=== PATIENT | male | born 1975 | race Caucasian/White ===

== ENCOUNTER 2017-02-11 20:49 | Emergency (ER) | payer BC, OTHER ==
[2017-02-11] MEDS ORDERED: Ondansetron 4 MG Tab.DIS PO ONE (21:20)
[2017-02-11] MEDS ORDERED: Morphine 2 MG/ML Syringe IM ONE (21:20)
[2017-02-11] MEDS ORDERED: Diphtheria,Pertussis(Acell),Tetanus Vaccine 0.5 ML Syringe IM ONE (21:25)
--- NOTE | 2017-02-11 21:26 | EDM.PDOC ---
ED HPI GENERAL MEDICAL PROBLEM - General Chief Complaint: Upper Extremity Injury/Pain Stated Complaint: PT HURT RT THUMB Time Seen by Provider: 02/11/17 21:21 Source of Information: Reports: Patient, Family History Limitations: Reports: No Limitations - History of Present Illness INITIAL COMMENTS - FREE TEXT/NARRATIVE: HISTORY AND PHYSICAL: 41-year-old male presenting with frostbite to his right thumb History of Present Illness: []Tip of his right thumb is cold ecchymosis present. he had his gloves on at work and didn't realize there was a hole in his gloves Does not recall his last tetanus injection Review of Systems: As per history of present illness and below otherwise all systems reviewed and negative. Past medical history: As per history of present illness and as reviewed below otherwise noncontributory. Surgical history: As per history of present illness and as reviewed below otherwise noncontributory. Social history: No reported history of drug or alcohol abuse. Family history: As per history of present illness and as reviewed below otherwise noncontributory. Physical exam: Alert and oriented male answering questions appropriately. He is speaking in full sentences without any shortness of breath HEENT: Atraumatic, normocehpalic, pupils reactive, negative for conjunctival pallor or scleral icterus, mucous membranes moist, throat clear, neck supple, nontender, trachea midline. Lungs: Clear to auscultation, breath sounds equal bilaterally, chest non tender. Heart: S1S2, regular, negative for clicks, rubs, or JVD. Abdomen: Soft, nondistended, nontender. Negative for masses or hepatossplenmegaly. Negative for costovertebral tenderness. Pelvis: Stable nontender. Genitourinary: Deferred. Rectal: Deferred Extremities: Atraumatic, negative for cords or calf pain. Neurovascular unremarkable. Neuro: Awake, alert, oriented. Cranial nerves II through XII unremarkable. Cerebellum unremarkable. Motor and sensory unremarkable throughout. Exam nonfocal. Diagnostics: [] Therapeutics: [] Impression: [] Plan: [] Definitive disposition and diagnosis as appropriate pending reevaluation and review of above. Onset: Today, Sudden Duration: Hour(s):, Getting Worse Location: Reports: Upper Extremity, Right Right 1-Thumb Pain Score (Numeric/FACES): 8 - Related Data Allergies Allergy/AdvReac Type Severity Reaction Status Date / Time No Known Allergies Allergy Verified 02/11/17 21:10 Home Meds: Home Meds . [No Known Home Meds] 02/11/17 [History] Review of Systems - Review of Systems Review Of Systems: ROS reveals no pertinent complaints other than HPI. ED EXAM, GENERAL - Physical Exam Exam: See Below (See dictation) Course - Vital Signs Last Recorded V/S: Last Vital Signs Temp 37.3 C 02/11/17 21:05 Pulse 99 02/11/17 21:05 Resp 18 02/11/17 21:05 BP 134/84 02/11/17 21:05 Pulse Ox 96 02/11/17 21:05 - Orders/Labs/Meds Orders: Active Orders 24 hr Category Date Time Status Vaccines to be Administered [RC] PER UNIT ROUTINE Care 02/11/17 21:25 Ordered Meds: Medications Discontinued Medications Generic Name Dose Route Start Last Admin Trade Name Freq PRN Reason Stop Dose Admin Bacitracin 1 dose 02/11/17 21:32 Bacitracin Oint 1 Gm TOP 02/11/17 21:33 ONETIME ONE Diphtheria/Tetanus/Acell Pertussis 0.5 ml 02/11/17 21:25 Adacel IM 02/11/17 21:26 .ONCE ONE Morphine Sulfate 2 mg 02/11/17 21:20 Morphine IM 02/11/17 21:21 ONETIME ONE Ondansetron HCl 4 mg 02/11/17 21:20 Zofran Odt PO 02/11/17 21:21 ONETIME ONE Departure - Departure Time of Disposition: 21:33 Disposition: Home, Self-Care 01 Condition: Good Clinical Impression: Frostbite of right hand Qualifiers: Encounter type: initial encounter Qualified Code(s): T33.521A - Superficial frostbite of right hand, initial encounter; X31.XXXA - Exposure to excessive natural cold, initial encounter; X31.XXXA - Exposure to excessive natural cold, initial encounter - Discharge Information Referrals: PCP,None [Primary Care Provider] - Poly Delaney MD [Physician] - Forms: ED Department Discharge Additional Instructions: The following information is given to patients seen in the emergency department who are being discharged to home. This information is to outline your options for follow-up care. We provide all patients seen in our emergency department with a follow-up referral. The need for follow-up, as well as the timing and circumstances, are variable depending upon the specifics of your emergency department visit. If you don't have a primary care physician on staff, we will provide you with a referral. We always advise you to contact your personal physician following an emergency department visit to inform them of the circumstance of the visit and for follow-up with them and/or the need for any referrals to a consulting specialist. The emergency department will also refer you to a specialist when appropriate. This referral assures that you have the opportunity for followup care with a specialist. All of these measure are taken in an effort to provide you with optimal care, which includes your followup. Under all circumstances we always encourage you to contact your private physician who remains a resource for coordinating your care. When calling for followup care, please make the office aware that this follow-up is from your recent emergency room visit. If for any reason you are refused follow-up, please contact the [facility] emergency department at and asked to speak to the emergency department charge nurse. [facility] Dr[facility] Mary Delaney tomorrow [facility] Special[facility] - Plastic Surgery Professional Building [address] [place] [address], [address] [place] [address] - My Orders Last 24 Hours: My Active Orders 02/11/17 21:25 Vaccines to be Administered [RC] PER UNIT ROUTINE - Assessment/Plan Last 24 Hours: My Active Orders 02/11/17 21:25 Vaccines to be Administered [RC] PER UNIT ROUTINE
[2017-02-11] MEDS ORDERED: Bacitracin Oint 1 GM U/D Packet TOP ONE (21:32)
== END 2017-02-11 22:04 | disposition home or self-care (01) ==
LOC: MW.ED 20:49
DX: T33.521A Superficial frostbite of right hand, initial encounter (principal); X31.XXXA Exposure to excessive natural cold, initial encounter; Z23 Encounter for immunization
CPT/HCPCS: 90471; 90715; 96372; 99283; A9270; J2270; 99282

== ENCOUNTER 2019-08-16 20:26 | Observation (INO) | payer BC ==
[2019-08-16] MEDS ORDERED: Sodium Chloride 0.9% 1,000 ML IV ONE (20:40)
[2019-08-16] MEDS ORDERED: LORazepam 2 MG/ML SDV IVPUSH ONE (20:40)
--- NOTE | 2019-08-16 20:46 | EDM.PDOC ---
ED HPI GENERAL MEDICAL PROBLEM - General Chief Complaint: Neurological Problem Stated Complaint: EMS ARRIVAL Time Seen by Provider: 08/16/19 20:41 Source of Information: Reports: Patient, EMS History Limitations: Reports: No Limitations - History of Present Illness INITIAL COMMENTS - FREE TEXT/NARRATIVE: Patient is a 43-year-old male who has had 2 seizures today. He had a seizure this morning while taking a shower that was observed by his son and then a seizure just prior to arrival. Patient did bite his tongue with this current seizure is complaining of abdominal pain from his seizure this morning. Patient does have a past history of having seizure 1 time many years ago. He denies any history of alcohol abuse and has had 2 alcoholic drinks over the last week. He has not used any drugs. He was not having any symptoms prior to the onset of his first seizure and states that he has been having a headache since he had his head this morning. He denies any change in his vision or hearing. He denies any neck pain or extremity injury. He denies having any chest pain or pressure or palpitations. He denies any bloody or tarry stools. Patient denies any weakness numbness or paresthesias. Patient has had no sleep deprivation. States with his first seizure years ago there was no work-up. He denies ever having a CT of his brain MRI or EEG. Patient's son does have a history of seizure disorder. Patient's who is been with him for 5 years states that his previous seizure 7 years ago was here and the patient was transferred to [facility]. I have no records of this visit in our system currently. She states patient does have a history of drug abuse years ago and alcohol abuse until last December when he got a DUI and has been not drinking since until over the last week where he had 2 drinks with her. She did witness a seizure this evening which she states lasted about a minute and was [place] with him first becoming stiff over his entire body and then having shaking of his extremities. Patient has been very somnolent all day as his seizure this morning which she states is highly unusual for him. He has been complaining of pain in various parts of his body since the earlier seizure. Onset: Today Duration: Getting Worse Location: Reports: Head, Face, Abdomen Quality: Reports: Ache, Dull Severity: Moderate Improves with: Reports: None Worsens with: Reports: None Context: Reports: Other (Seizure x2 today) headache Pain Score (Numeric/FACES): 6 - Related Data Allergies Allergy/AdvReac Type Severity Reaction Status Date / Time No Known Allergies Allergy Verified 08/16/19 20:40 Home Meds: Home Meds . [No Known Home Meds] 08/16/19 [History] Past Medical History HEENT History: Reports: Hard of Hearing Cardiovascular History: Reports: None Respiratory History: Reports: None Gastrointestinal History: Reports: None Genitourinary History: Reports: None Neurological History: Reports: None Psychiatric History: Reports: None Dermatologic History: Reports: None - Infectious Disease History Infectious Disease History: Reports: Chicken Pox - Past Surgical History Musculoskeletal Surgical History: Reports: Other (See Below) Other Musculoskeletal Surgeries/Procedures:: 4 surgeries to R knee, L ankle fx with surgery, R hand surgery, R wrist surgery. Social & Family History - Family History Family Medical History: Noncontributory - Caffeine Use Caffeine Use: Reports: Coffee, Energy Drinks, Soda ED ROS GENERAL - Review of Systems Review Of Systems: Comprehensive ROS is negative, except as noted in HPI. - Physical Exam Exam: See Below Exam Limited By: No Limitations General Appearance: Alert, No Apparent Distress Throat/Mouth: Evidence of Tongue Biting Head Exam: Normocephalic, Facial Tenderness (Patient is having tenderness above his right eyebrow with no apparent hematoma or ecchymosis.) Neck: Normal Inspection, Supple, Non-Tender, Full Range of Motion Respiratory/Chest: No Respiratory Distress, Lungs Clear, Normal Breath Sounds Cardiovascular: Regular Rate, Rhythm, No JVD GI/Abdominal: Normal Bowel Sounds, Soft, No Organomegaly, Tender, Other (She has tenderness right lower quadrant with no abdominal wall contusion appreciated.). No: Distended, Guarding, Rebound Neuro Exam (Abbreviated): Alert, Oriented, CN II-XII Intact, Normal Cognition, No Motor/Sensory Deficits Back Exam: Normal Inspection, Full Range of Motion Extremities: Normal Inspection, Normal Range of Motion Psychiatric: Normal Affect Skin Exam: Warm, Dry, Normal Color EKG INTERPRETATION Rhythm: NSR P-Wave: Present QRS: Normal ST-T: Normal Course - Vital Signs Text/Narrative:: Patient's lab work shows him to have a white blood cell count of 16 and a lactate of 4.0. Electrolytes are all within normal limits. Head CT shows no acute disease and possibly chronic sinusitis. EKG shows no ST or T wave changes normal sinus rhythm. I have discussed the patient with Dr. Olmos who is a neurologist at [facility] who feels due to patient's previous seizure 7 years ago he needs to be placed on Keppra being given 1 g as a loading dose then 500 twice daily. Patient is not to drive for 3 months until he is cleared by neurologist and needs an EEG at some point in the future and then follow-up with neurologist. Recommending patient be admitted overnight for observation since he had 2 seizures today. Patient and is aware of this recommendation and are agreeable. Hospitalist is aware of the patient and will admit him for observation. Last Recorded V/S: Last Vital Signs Temp 37.2 C 08/16/19 20:27 Pulse 88 08/16/19 21:30 Resp 17 08/16/19 21:30 BP 126/80 08/16/19 21:30 Pulse Ox 98 08/16/19 21:30 - Orders/Labs/Meds Orders: Active Orders 24 hr Category Date Time Status EKG 12 Lead [EKG Documentation Completion] [RC] STAT Care 08/16/19 20:40 Active levETIRAcetam [Keppra] 1,000 mg Med 08/16/19 23:00 Active Dextrose 5% in Water 100 ml IV Q12H Medication Orders Levetiracetam 1,000 mg/ (Dextrose/Water) 110 mls @ 440 mls/hr IV Q12H [place] Labs: Laboratory Tests 08/16/19 08/16/19 08/16/19 Range/Units 20:33 20:33 20:33 WBC 16.02 H (4.0-11.0) K/uL RBC 5.17 (4.50-5.90) M/uL Hgb 15.3 (13.0-17.0) g/dL Hct 45.3 (38.0-50.0) % MCV 87.6 (80.0-98.0) fL MCH 29.6 (27.0-32.0) pg MCHC 33.8 (31.0-37.0) g/dL RDW Std Deviation 42.5 (28.0-62.0) fl RDW Coeff of Ileana 13 (11.0-15.0) % Plt Count 277 (150-400) K/uL MPV 11.40 (7.40-12.00) fL Neut % (Auto) 66.8 (48.0-80.0) % Lymph % (Auto) 22.6 (16.0-40.0) % [place] % (Auto) 9.6 (0.0-15.0) % Eos % (Auto) 0.8 (0.0-7.0) % Baso % (Auto) 0.2 (0.0-1.5) % Neut # (Auto) 10.7 H (1.4-5.7) K/uL Lymph # (Auto) 3.6 H (0.6-2.4) K/uL [place] # (Auto) 1.5 H (0.0-0.8) K/uL Eos # (Auto) 0.1 (0.0-0.7) K/uL Baso # (Auto) 0.0 (0.0-0.1) K/uL Nucleated RBC % 0.0 /100WBC Nucleated RBCs # 0 K/uL Lactate 4.0 H* (0.20-2.00) mmol/L Sodium 140 (136-148) mmol/L Potassium 3.8 (3.5-5.1) mmol/L Chloride 105 (98-107) mmol/L Carbon Dioxide 22.3 (21.0-32.0) mmol/L BUN 16 (7.0-18.0) mg/dL Creatinine 1.2 (0.8-1.3) mg/dL Est Cr Clr Drug Dosing 77.74 mL/min Estimated GFR (MDRD) > 60.0 ml/min Glucose 94 (74-106) mg/dL Calcium 8.5 (8.5-10.1) mg/dL Total Bilirubin 0.7 (0.2-1.0) mg/dL AST 27 (15-37) IU/L ALT 30 (14-63) IU/L Alkaline Phosphatase 101 (46-116) U/L Total Protein 7.1 (6.4-8.2) g/dL Albumin 3.8 (3.4-5.0) g/dL Globulin 3.3 (2.6-4.0) g/dL Albumin/Globulin Ratio 1.2 (0.9-1.6) Urine Color Urine Appearance Urine pH (5.0-8.0) Ur Specific Speer (1.001-1.035) Urine Protein (NEGATIVE) mg/dL Urine Glucose (UA) (NEGATIVE) mg/dL Urine Ketones (NEGATIVE) mg/dL Urine Occult Blood (NEGATIVE) Urine Nitrite (NEGATIVE) Urine Bilirubin (NEGATIVE) Urine Urobilinogen (<2.0) EU/dL Ur Leukocyte Esterase (NEGATIVE) Urine RBC (0-2/HPF) Urine WBC (0-5/HPF) Ur Epithelial Cells (NONE-FEW) Urine Bacteria (NEGATIVE) Urine Opiates Screen (NEGATIVE) Ur Oxycodone Screen (NEGATIVE) Urine Methadone Screen (NEGATIVE) Ur Barbiturates Screen (NEGATIVE) Ur Phencyclidine Scrn (NEGATIVE) Ur Amphetamine Screen (NEGATIVE) U Methamphetamines Scrn (NEGATIVE) U Benzodiazepines Scrn (NEGATIVE) U Cocaine Metab Screen (NEGATIVE) U Marijuana (THC) Screen (NEGATIVE) Ethyl Alcohol <3 mg/dL 08/16/19 08/16/19 Range/Units 20:34 20:34 WBC (4.0-11.0) K/uL RBC (4.50-5.90) M/uL Hgb (13.0-17.0) g/dL Hct (38.0-50.0) % MCV (80.0-98.0) fL MCH (27.0-32.0) pg MCHC (31.0-37.0) g/dL RDW Std Deviation (28.0-62.0) fl RDW Coeff of Ileana (11.0-15.0) % Plt Count (150-400) K/uL MPV (7.40-12.00) fL Neut % (Auto) (48.0-80.0) % Lymph % (Auto) (16.0-40.0) % [place] % (Auto) (0.0-15.0) % Eos % (Auto) (0.0-7.0) % Baso % (Auto) (0.0-1.5) % Neut # (Auto) (1.4-5.7) K/uL Lymph # (Auto) (0.6-2.4) K/uL [place] # (Auto) (0.0-0.8) K/uL Eos # (Auto) (0.0-0.7) K/uL Baso # (Auto) (0.0-0.1) K/uL Nucleated RBC % /100WBC Nucleated RBCs # K/uL Lactate (0.20-2.00) mmol/L Sodium (136-148) mmol/L Potassium (3.5-5.1) mmol/L Chloride (98-107) mmol/L Carbon Dioxide (21.0-32.0) mmol/L BUN (7.0-18.0) mg/dL Creatinine (0.8-1.3) mg/dL Est Cr Clr Drug Dosing mL/min Estimated GFR (MDRD) ml/min Glucose (74-106) mg/dL Calcium (8.5-10.1) mg/dL Total Bilirubin (0.2-1.0) mg/dL AST (15-37) IU/L ALT (14-63) IU/L Alkaline Phosphatase (46-116) U/L Total Protein (6.4-8.2) g/dL Albumin (3.4-5.0) g/dL Globulin (2.6-4.0) g/dL Albumin/Globulin Ratio (0.9-1.6) Urine Color YELLOW Urine Appearance CLEAR Urine pH 5.5 (5.0-8.0) Ur Specific Speer >= 1.030 (1.001-1.035) Urine Protein NEGATIVE (NEGATIVE) mg/dL Urine Glucose (UA) NEGATIVE (NEGATIVE) mg/dL Urine Ketones NEGATIVE (NEGATIVE) mg/dL Urine Occult Blood MODERATE H (NEGATIVE) Urine Nitrite NEGATIVE (NEGATIVE) Urine Bilirubin NEGATIVE (NEGATIVE) Urine Urobilinogen 0.2 (<2.0) EU/dL Ur Leukocyte Esterase NEGATIVE (NEGATIVE) Urine RBC 1-2 (0-2/HPF) Urine WBC 0-1 (0-5/HPF) Ur Epithelial Cells RARE (NONE-FEW) Urine Bacteria RARE (NEGATIVE) Urine Opiates Screen NEGATIVE (NEGATIVE) Ur Oxycodone Screen NEGATIVE (NEGATIVE) Urine Methadone Screen NEGATIVE (NEGATIVE) Ur Barbiturates Screen NEGATIVE (NEGATIVE) Ur Phencyclidine Scrn NEGATIVE (NEGATIVE) Ur Amphetamine Screen NEGATIVE (NEGATIVE) U Methamphetamines Scrn NEGATIVE (NEGATIVE) U Benzodiazepines Scrn NEGATIVE (NEGATIVE) U Cocaine Metab Screen NEGATIVE (NEGATIVE) U Marijuana (THC) Screen NEGATIVE (NEGATIVE) Ethyl Alcohol mg/dL Meds: Medications Generic Name Dose Route Start Last Admin Trade Name Johnathan PRN Reason Stop Dose Admin Levetiracetam 1,000 mg/ 110 mls @ 440 mls/hr 08/16/19 23:00 Dextrose/Water IV Q12H [place] Discontinued Medications Generic Name Dose Route Start Last Admin Trade Name Johnathan PRN Reason Stop Dose Admin Sodium Chloride 1,000 mls @ 999 mls/hr 08/16/19 20:40 08/16/19 20:42 Normal Saline IV 08/16/19 21:40 999 mls/hr .BOLUS ONE Administration Iopamidol 100 ml 08/16/19 21:36 08/16/19 21:37 Isovue-370 (76%) IVPUSH 08/16/19 21:37 100 ml ONETIME STA Administration Lorazepam 1 mg 08/16/19 20:40 08/16/19 20:46 Ativan IVPUSH 08/16/19 20:41 1 mg ONETIME ONE Administration Departure - Departure Time of Disposition: 23:04 Disposition: Refer to Observation Condition: Good Clinical Impression: Grand mal seizure disorder - Discharge Information Referrals: PCP,None [Primary Care Provider] - Forms: ED Department Discharge Sepsis Event Note - Evaluation Sepsis Screening Result: No Definite Risk - Focused Exam Vital Signs: Vital Signs Temp Pulse Resp BP Pulse Ox 08/16/19 21:30 88 17 126/80 98 08/16/19 20:51 89 17 119/72 96 08/16/19 20:27 37.2 C 104 H 18 146/93 H 97 Date Exam was Performed: 08/16/19 Time Exam was Performed: 23:02 - My Orders Last 24 Hours: My Active Orders 08/16/19 20:40 EKG 12 Lead [EKG Documentation Completion] [RC] STAT 08/16/19 23:00 levETIRAcetam [Keppra] 1,000 mg Dextrose 5% in Water 100 ml IV Q12H - Assessment/Plan Last 24 Hours: My Active Orders 08/16/19 20:40 EKG 12 Lead [EKG Documentation Completion] [RC] STAT 08/16/19 23:00 levETIRAcetam [Keppra] 1,000 mg Dextrose 5% in Water 100 ml IV Q12H
[2019-08-16 20:57] LABS: BLOOD UREA NITROGEN,BUN 16 mg/dL (7.0-18.0); CARBON DIOXIDE,CO2 22.3 mmol/L (21.0-32.0); CHLORIDE,CL 105 mmol/L (98-107); GLUCOSE RANDOM 94 mg/dL (74-106); POTASSIUM,K 3.8 mmol/L (3.5-5.1); SODIUM,NA 140 mmol/L (136-148)
[2019-08-16] MEDS ORDERED: Iopamidol 755 Mg/ML 100 ML Bottle IVPUSH STA (21:36)
--- NOTE | 2019-08-16 21:44 | CT ---
Head CT Technique: Multiple axial sections to the brain were obtained. Intravenous contrast was not utilized. Limitations: Motion artifact is noted. Comparison: No prior intracranial imaging is available. Findings: Ventricles along with basal cisterns and sulci over the convexities are within normal limits for the patient's age. No abnormal parenchymal densities are seen. No evidence of intracranial hemorrhage. No midline shift or mass effect is seen. Bone window settings were reviewed. Minimal mucosal thickening is noted within the left maxillary sinus. Nothing acute is seen within the mastoid sinuses. No acute calvarial finding is appreciated. Impression: 1. Details are minimally decreased due to motion artifact. 2. Minimal sinus findings believed to be pre-existing and chronic. 3. No acute intracranial abnormality is appreciated. Diagnostic code #2 Study was dictated in MDT
--- NOTE | 2019-08-16 22:45 | CT ---
CT pelvis Technique: Multiple axial sections were obtained from above the dome of the diaphragm inferiorly through the pubic symphysis. Intravenous contrast was utilized. No oral contrast has been given. Comparison: No prior abdominal imaging is available. Findings: Mild inflammatory change is seen off the inferior tip of the cecum. Appendix not well visualized and please correlate if patient still has appendix present. Mild appendicitis is difficult to exclude. If patient has had prior appendectomy findings are less specific for a colitis off the distal tip of the cecum. This does not appear to involve the terminal ileum. Other findings: Visualized lung bases show nothing acute. Liver shows no focal parenchymal abnormality. Spleen appears within normal limits. Adrenal glands show no nodule. Kidneys show symmetric contrast enhancement without hydronephrosis or mass. Gallbladder contains no calcified gallstones. Aorta shows no aneurysm. No retroperitoneal adenopathy or mesenteric abnormalities are otherwise seen. No pelvic mass or adenopathy is seen. No free fluid or other inflammatory change is seen. Bone window settings were reviewed. Spondylolisthesis is noted at L5-S1 measuring about 8 mm. Disc space narrowing at L5-S1 with vacuum disc phenomena is seen. Spondylolisthesis caused by bilateral spondylolytic defects. Lesser degenerative change is noted within the lower thoracic spine. Impression: 1. Mild inflammatory change off the tip of the cecum. Appendix is not visualized but please correlate if appendix is present for findings to represent mild appendicitis. If patient has had prior appendectomy findings could represent mild colitis off the tip of the cecum. 2. Other nonacute findings as noted above. Diagnostic code #3 Study was dictated in MDT
[2019-08-17] MEDS: Sodium Chloride 0.9% 1,000 ML IV SCH ×3 (00:46→18:27)
[2019-08-17 02:59] LABS: BLOOD UREA NITROGEN,BUN 11 mg/dL (7.0-18.0); CHLORIDE,CL 106 mmol/L (98-107); GLUCOSE RANDOM 108 mg/dL (74-106); POTASSIUM,K 3.6 mmol/L (3.5-5.1); SODIUM,NA 140 mmol/L (136-148)
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
[2019-08-17] MEDS ORDERED: Ondansetron 4 MG/2 ML SDV IVPUSH PRN (08:31)
[2019-08-17] MEDS: Piperacillin/Tazobactam 3.375 GM in Sodium Chloride 0.9% 50 ML IV SCH ×3 (08:35→20:34)
[2019-08-17] MEDS ORDERED: LORazepam 2 MG/ML SDV IVPUSH PRN (08:35)
--- NOTE | 2019-08-17 13:40 | PCM.CONS ---
H&P History of Present Illness - General Date of Service: 08/17/19 Admit Problem/Dx: Admission Diagnosis/Problem Admission Diagnosis/Problem Grand mal seizure disorder Source of Information: Patient History Limitations: Reports: No Limitations - History of Present Illness Initial Comments - Free Text/Narative: Patient is a 43-year-old male with a history of seizures who presented to emergency room yesterday after having 2 seizures at home. The patient tells me that he was in his usual state of health prior to this. He denied any fevers chills abdominal pain nausea vomiting infectious contacts or changes in bowel or bladder habits. He has had seizures in the past but has never had them worked up. He is currently not on any seizure meds at home. He does not take any medications at home. Last evening after the seizure he developed right lower quadrant pain. The patient states that the pain is made worse with movement or palpation of the right lower quadrant. Upon admission to the ER he was mildly tachycardic with a heart rate of 104. He is also mildly hypertensive. He was afebrile. His admit her to the medicine team due to the seizures and given a loading dose of Keppra and started on maintenance after that. Because he mentioned the abdominal pain, the emergency room doctor obtained a CT scan of the abdomen pelvis. This showed questionable cecal inflammation versus appendicitis. He had a lactate of 4 and a white count of 16, 000. This morning the lactate returned to normal and his white count came down to 14,000. He was not started on IV anabiotic's overnight. The medicine team saw him this morning and read the report then consulted me. Generalized Pain Score (Numeric/FACES): 4 Right Lower Abdomen Pain Score (Numeric/FACES): 4 headache Pain Score (Numeric/FACES): 3 - Related Data Allergies/Adverse Reactions: Allergies Allergy/AdvReac Type Severity Reaction Status Date / Time No Known Allergies Allergy Verified 08/16/19 20:40 Home Medications: Home Meds . [No Known Home Meds] 08/16/19 [History] Past Medical History HEENT History: Reports: Hard of Hearing Cardiovascular History: Reports: None Respiratory History: Reports: None Gastrointestinal History: Reports: None Genitourinary History: Reports: None Musculoskeletal History: Reports: None Neurological History: Reports: Seizure Other Neuro History: epilepsy but not on medication Psychiatric History: Reports: None Dermatologic History: Reports: None - Infectious Disease History Infectious Disease History: Reports: Chicken Pox - Past Surgical History GI Surgical History: Reports: Appendectomy, Hernia Repair/Other (right inguinal) Musculoskeletal Surgical History: Reports: Other (See Below) Other Musculoskeletal Surgeries/Procedures:: 4 surgeries to R knee, L ankle fx with surgery, R hand surgery, R wrist surgery. Social & Family History - Family History Family Medical History: Noncontributory - Tobacco Use Smoking Status *Q: Light Tobacco Smoker Years of Tobacco use: 7 Packs/Tins Daily: 0 Second Hand Smoke Exposure: Yes - Caffeine Use Caffeine Use: Reports: Coffee, Energy Drinks, Soda - Recreational Drug Use Recreational Drug Use: No H&P Review of Systems - Review of Systems: Review Of Systems: See Below General: Reports: No Symptoms Pulmonary: Reports: No Symptoms Cardiovascular: Reports: No Symptoms Gastrointestinal: Reports: Abdominal Pain (rlq), Flatus. Denies: Anorexia, Constipation, Diarrhea, Decreased Appetite, Hematemesis, Hematochezia, Melena, Mucous in Stool, Nausea, Vomiting Genitourinary: Reports: No Symptoms Musculoskeletal: Reports: No Symptoms Exam - Exam Exam: See Below - Vital Signs Vital Signs: Last Vital Signs Temp 37.6 C 08/17/19 12:00 Pulse 83 08/17/19 12:00 Resp 18 08/17/19 12:00 BP 139/76 08/17/19 12:00 Pulse Ox 97 08/17/19 12:00 Weight: 88.4 kg - Exam General: Alert, Oriented, Cooperative HEENT: Conjunctiva Clear, Mucosa Moist & [place], Posterior Pharynx Clear Neck: Supple Lungs: Clear to Auscultation, Normal Respiratory Effort Cardiovascular: Regular Rate, Regular Rhythm GI/Abdominal Exam: Soft, Guarding ([place]Bur[place]'s point ), Rebound ([place]'s point ), Tender ([place]), Other (3 well-healed laparoscopic incisions along the left side of the abdomen. Well-healed right inguinal repair hernia scar.). No: Distended (Male) Exam: No Hernia, Normal Inspection - Patient Data Lab Results Last 24 hrs: Laboratory Results - last 24 hr 08/16/19 08/16/19 08/16/19 Range/Units 20:33 20:33 20:33 WBC 16.02 H (4.0-11.0) K/uL RBC 5.17 (4.50-5.90) M/uL Hgb 15.3 (13.0-17.0) g/dL Hct 45.3 (38.0-50.0) % MCV 87.6 (80.0-98.0) fL MCH 29.6 (27.0-32.0) pg MCHC 33.8 (31.0-37.0) g/dL RDW Std Deviation 42.5 (28.0-62.0) fl RDW Coeff of Ileana 13 (11.0-15.0) % Plt Count 277 (150-400) K/uL MPV 11.40 (7.40-12.00) fL Neut % (Auto) 66.8 (48.0-80.0) % Lymph % (Auto) 22.6 (16.0-40.0) % [place] % (Auto) 9.6 (0.0-15.0) % Eos % (Auto) 0.8 (0.0-7.0) % Baso % (Auto) 0.2 (0.0-1.5) % Neut # (Auto) 10.7 H (1.4-5.7) K/uL Lymph # (Auto) 3.6 H (0.6-2.4) K/uL [place] # (Auto) 1.5 H (0.0-0.8) K/uL Eos # (Auto) 0.1 (0.0-0.7) K/uL Baso # (Auto) 0.0 (0.0-0.1) K/uL Nucleated RBC % 0.0 /100WBC Nucleated RBCs # 0 K/uL Lactate 4.0 H* (0.20-2.00) mmol/L Sodium 140 (136-148) mmol/L Potassium 3.8 (3.5-5.1) mmol/L Chloride 105 (98-107) mmol/L Carbon Dioxide 22.3 (21.0-32.0) mmol/L BUN 16 (7.0-18.0) mg/dL Creatinine 1.2 (0.8-1.3) mg/dL Est Cr Clr Drug Dosing 77.74 mL/min Estimated GFR (MDRD) > 60.0 ml/min Glucose 94 (74-106) mg/dL Calcium 8.5 (8.5-10.1) mg/dL Total Bilirubin 0.7 (0.2-1.0) mg/dL AST 27 (15-37) IU/L ALT 30 (14-63) IU/L Alkaline Phosphatase 101 (46-116) U/L Total Protein 7.1 (6.4-8.2) g/dL Albumin 3.8 (3.4-5.0) g/dL Globulin 3.3 (2.6-4.0) g/dL Albumin/Globulin Ratio 1.2 (0.9-1.6) Urine Color Urine Appearance Urine pH (5.0-8.0) Ur Specific [place] (1.001-1.035) Urine Protein (NEGATIVE) mg/dL Urine Glucose (UA) (NEGATIVE) mg/dL Urine Ketones (NEGATIVE) mg/dL Urine Occult Blood (NEGATIVE) Urine Nitrite (NEGATIVE) Urine Bilirubin (NEGATIVE) Urine Urobilinogen (<2.0) EU/dL Ur Leukocyte Esterase (NEGATIVE) Urine RBC (0-2/HPF) Urine WBC (0-5/HPF) Ur Epithelial Cells (NONE-FEW) Urine Bacteria (NEGATIVE) Urine Opiates Screen (NEGATIVE) Ur Oxycodone Screen (NEGATIVE) Urine Methadone Screen (NEGATIVE) Ur Barbiturates Screen (NEGATIVE) Ur Phencyclidine Scrn (NEGATIVE) Ur Amphetamine Screen (NEGATIVE) U Methamphetamines Scrn (NEGATIVE) U Benzodiazepines Scrn (NEGATIVE) U Cocaine Metab Screen (NEGATIVE) U Marijuana (THC) Screen (NEGATIVE) Ethyl Alcohol <3 mg/dL 08/16/19 08/16/19 08/17/19 Range/Units 20:34 20:34 02:36 WBC (4.0-11.0) K/uL RBC (4.50-5.90) M/uL Hgb (13.0-17.0) g/dL Hct (38.0-50.0) % MCV (80.0-98.0) fL MCH (27.0-32.0) pg MCHC (31.0-37.0) g/dL RDW Std Deviation (28.0-62.0) fl RDW Coeff of Ileana (11.0-15.0) % Plt Count (150-400) K/uL MPV (7.40-12.00) fL Neut % (Auto) (48.0-80.0) % Lymph % (Auto) (16.0-40.0) % [place] % (Auto) (0.0-15.0) % Eos % (Auto) (0.0-7.0) % Baso % (Auto) (0.0-1.5) % Neut # (Auto) (1.4-5.7) K/uL Lymph # (Auto) (0.6-2.4) K/uL [place] # (Auto) (0.0-0.8) K/uL Eos # (Auto) (0.0-0.7) K/uL Baso # (Auto) (0.0-0.1) K/uL Nucleated RBC % /100WBC Nucleated RBCs # K/uL Lactate 1.1 (0.20-2.00) mmol/L Sodium (136-148) mmol/L Potassium (3.5-5.1) mmol/L Chloride (98-107) mmol/L Carbon Dioxide (21.0-32.0) mmol/L BUN (7.0-18.0) mg/dL Creatinine (0.8-1.3) mg/dL Est Cr Clr Drug Dosing mL/min Estimated GFR (MDRD) ml/min Glucose (74-106) mg/dL Calcium (8.5-10.1) mg/dL Total Bilirubin (0.2-1.0) mg/dL AST (15-37) IU/L ALT (14-63) IU/L Alkaline Phosphatase (46-116) U/L Total Protein (6.4-8.2) g/dL Albumin (3.4-5.0) g/dL Globulin (2.6-4.0) g/dL Albumin/Globulin Ratio (0.9-1.6) Urine Color YELLOW Urine Appearance CLEAR Urine pH 5.5 (5.0-8.0) Ur Specific [place] >= 1.030 (1.001-1.035) Urine Protein NEGATIVE (NEGATIVE) mg/dL Urine Glucose (UA) NEGATIVE (NEGATIVE) mg/dL Urine Ketones NEGATIVE (NEGATIVE) mg/dL Urine Occult Blood MODERATE H (NEGATIVE) Urine Nitrite NEGATIVE (NEGATIVE) Urine Bilirubin NEGATIVE (NEGATIVE) Urine Urobilinogen 0.2 (<2.0) EU/dL Ur Leukocyte Esterase NEGATIVE (NEGATIVE) Urine RBC 1-2 (0-2/HPF) Urine WBC 0-1 (0-5/HPF) Ur Epithelial Cells RARE (NONE-FEW) Urine Bacteria RARE (NEGATIVE) Urine Opiates Screen NEGATIVE (NEGATIVE) Ur Oxycodone Screen NEGATIVE (NEGATIVE) Urine Methadone Screen NEGATIVE (NEGATIVE) Ur Barbiturates Screen NEGATIVE (NEGATIVE) Ur Phencyclidine Scrn NEGATIVE (NEGATIVE) Ur Amphetamine Screen NEGATIVE (NEGATIVE) U Methamphetamines Scrn NEGATIVE (NEGATIVE) U Benzodiazepines Scrn NEGATIVE (NEGATIVE) U Cocaine Metab Screen NEGATIVE (NEGATIVE) U Marijuana (THC) Screen NEGATIVE (NEGATIVE) Ethyl Alcohol mg/dL 08/17/19 08/17/19 Range/Units 02:36 02:36 WBC 14.47 H (4.0-11.0) K/uL RBC 4.68 (4.50-5.90) M/uL Hgb 13.8 (13.0-17.0) g/dL Hct 41.3 (38.0-50.0) % MCV 88.2 (80.0-98.0) fL MCH 29.5 (27.0-32.0) pg MCHC 33.4 (31.0-37.0) g/dL RDW Std Deviation 43.2 (28.0-62.0) fl RDW Coeff of Ileana 13 (11.0-15.0) % Plt Count 215 (150-400) K/uL MPV 11.00 (7.40-12.00) fL Neut % (Auto) 72.3 (48.0-80.0) % Lymph % (Auto) 19.1 (16.0-40.0) % [place] % (Auto) 8.3 (0.0-15.0) % Eos % (Auto) 0.2 (0.0-7.0) % Baso % (Auto) 0.1 (0.0-1.5) % Neut # (Auto) 10.5 H (1.4-5.7) K/uL Lymph # (Auto) 2.8 H (0.6-2.4) K/uL [place] # (Auto) 1.2 H (0.0-0.8) K/uL Eos # (Auto) 0.0 (0.0-0.7) K/uL Baso # (Auto) 0.0 (0.0-0.1) K/uL Nucleated RBC % 0.0 /100WBC Nucleated RBCs # 0 K/uL Lactate (0.20-2.00) mmol/L Sodium 140 (136-148) mmol/L Potassium 3.6 (3.5-5.1) mmol/L Chloride 106 (98-107) mmol/L Carbon Dioxide 25.0 (21.0-32.0) mmol/L BUN 11 (7.0-18.0) mg/dL Creatinine 1.0 (0.8-1.3) mg/dL Est Cr Clr Drug Dosing 96.32 mL/min Estimated GFR (MDRD) > 60.0 ml/min Glucose 108 H (74-106) mg/dL Calcium 7.9 L (8.5-10.1) mg/dL Total Bilirubin (0.2-1.0) mg/dL AST (15-37) IU/L ALT (14-63) IU/L Alkaline Phosphatase (46-116) U/L Total Protein (6.4-8.2) g/dL Albumin (3.4-5.0) g/dL Globulin (2.6-4.0) g/dL Albumin/Globulin Ratio (0.9-1.6) Urine Color Urine Appearance Urine pH (5.0-8.0) Ur Specific [place] (1.001-1.035) Urine Protein (NEGATIVE) mg/dL Urine Glucose (UA) (NEGATIVE) mg/dL Urine Ketones (NEGATIVE) mg/dL Urine Occult Blood (NEGATIVE) Urine Nitrite (NEGATIVE) Urine Bilirubin (NEGATIVE) Urine Urobilinogen (<2.0) EU/dL Ur Leukocyte Esterase (NEGATIVE) Urine RBC (0-2/HPF) Urine WBC (0-5/HPF) Ur Epithelial Cells (NONE-FEW) Urine Bacteria (NEGATIVE) Urine Opiates Screen (NEGATIVE) Ur Oxycodone Screen (NEGATIVE) Urine Methadone Screen (NEGATIVE) Ur Barbiturates Screen (NEGATIVE) Ur Phencyclidine Scrn (NEGATIVE) Ur Amphetamine Screen (NEGATIVE) U Methamphetamines Scrn (NEGATIVE) U Benzodiazepines Scrn (NEGATIVE) U Cocaine Metab Screen (NEGATIVE) U Marijuana (THC) Screen (NEGATIVE) Ethyl Alcohol mg/dL Result Diagrams: 08/17/19 02:36 08/17/19 02:36 Sepsis Event Note - Evaluation Sepsis Screening Result: No Definite Risk - Focused Exam Vital Signs: Vital Signs Temp Pulse Resp BP Pulse Ox 08/17/19 12:00 37.6 C 83 18 139/76 97 08/17/19 08:15 37.2 C 91 18 131/78 95 08/17/19 04:00 37.6 C 92 16 117/70 97 Date Exam was Performed: 08/17/19 Time Exam was Performed: 13:35 Consult PN Assessment/Plan Procedures: Procedures EMERGENCY DEPT VISIT (10/23/17) EMERGENCY DEPT VISIT (02/11/17) IMMUNIZATION ADMIN (02/11/17) TDAP VACCINE 7 YRS/> IM (02/11/17) THER/PROPH/DIAG INJ SC/IM (02/11/17) (1) Cecal diverticulitis SNOMED Code(s): 786598153 Code(s): K57.32 - DVTRCLI OF LG INT W/O PERFORATION OR ABSCESS W/O BLEEDING Current Visit: Yes Problem List Initiated/Reviewed/Updated: Yes Plan: At first I had a difficult time seeing the laparoscopic scars on the patient's abdomen. I asked for a second radiologist read on the imaging. He mentions in his read that there were bell consistent with a previous appendectomy and that the patient had a cecal diverticulum that appeared inflamed. There is no evidence of perforation. After I obtained a second read I went into the patient' s room and examined his abdomen more closely. There were 3 faint surgical incisions consistent with a laparoscopic appendectomy. After pointing these out the patient recalled having a procedure performed. The patient and I discussed the pathophysiology of diverticulitis. Explained the treatment involves all rest IV fluids and IV antibiotics. I'll continue IV Zosyn 3.375 every 6 hours for the next 24 hours. He can do ice chips and sips with meds. Will recheck his white count in the morning. His pain at this point is localized to the right lower quadrant and he does not need surgery. Once the pain improves and his white count is within normal limits will advance diet and switch to oral antibiotics Will see again in the morning. Call with questions or concerns.
[2019-08-17] MEDS: levETIRAcetam 500 MG Tab PO SCH ×2 (16:25→21:19)
[2019-08-17] MEDS: Acetaminophen 325 MG Tab PO PRN (19:20)
[2019-08-17] MEDS: Morphine 2 MG/ML Syringe IVPUSH PRN (20:30)
[2019-08-18] MEDS: Piperacillin/Tazobactam 3.375 GM in Sodium Chloride 0.9% 50 ML IV SCH ×4 (01:14→20:22)
[2019-08-18] MEDS: Sodium Chloride 0.9% 1,000 ML IV SCH (03:58)
[2019-08-18] MEDS: Morphine 2 MG/ML Syringe IVPUSH PRN (04:02)
[2019-08-18 06:34] LABS: BLOOD UREA NITROGEN,BUN 8 mg/dL (7.0-18.0); CARBON DIOXIDE,CO2 23.1 mmol/L (21.0-32.0); CHLORIDE,CL 106 mmol/L (98-107); GLUCOSE RANDOM 90 mg/dL (74-106); POTASSIUM,K 3.7 mmol/L (3.5-5.1); SODIUM,NA 140 mmol/L (136-148)
--- NOTE | 2019-08-18 08:10 | PCM.PN ---
- General Info Date of Service: 08/18/19 Subjective Update: The patient still feels sore but abdominal pain has improved. Wants to eat. No seizure activity. Temp of 100.9 yesterday. - Review of Systems General: Reports: Fever HEENT: Reports: No Symptoms Pulmonary: Reports: No Symptoms Cardiovascular: Reports: No Symptoms Gastrointestinal: Reports: Abdominal Pain. Denies: Constipation, Diarrhea, Nausea, Vomiting Genitourinary: Reports: No Symptoms Musculoskeletal: Reports: No Symptoms Skin: Reports: No Symptoms Neurological: Reports: No Symptoms Psychiatric: Reports: No Symptoms - Patient Data Vitals - Most Recent: Last Vital Signs Temp 98.6 F 08/18/19 08:00 Pulse 92 08/18/19 08:00 Resp 18 08/18/19 08:00 BP 120/64 08/18/19 08:00 Pulse Ox 95 08/18/19 08:00 Weight - Most Recent: 88.4 kg I&O - Last 24 Hours: Intake & Output 08/17/19 08/18/19 08/18/19 22:59 06:59 14:59 Intake Total 1725 1376 Output Total 2000 750 Balance -275 626 Lab Results Last 24 Hours: Laboratory Results - last 24 hr 08/18/19 08/18/19 Range/Units 05:45 05:45 WBC 12.43 H (4.0-11.0) K/uL RBC 4.66 (4.50-5.90) M/uL Hgb 13.8 (13.0-17.0) g/dL Hct 42.0 (38.0-50.0) % MCV 90.1 (80.0-98.0) fL MCH 29.6 (27.0-32.0) pg MCHC 32.9 (31.0-37.0) g/dL RDW Std Deviation 43.1 (28.0-62.0) fl RDW Coeff of Ileana 13 (11.0-15.0) % Plt Count 217 (150-400) K/uL MPV 11.00 (7.40-12.00) fL Neut % (Auto) 75.9 (48.0-80.0) % Lymph % (Auto) 14.6 L (16.0-40.0) % [place] % (Auto) 8.8 (0.0-15.0) % Eos % (Auto) 0.4 (0.0-7.0) % Baso % (Auto) 0.3 (0.0-1.5) % Neut # (Auto) 9.4 H (1.4-5.7) K/uL Lymph # (Auto) 1.8 (0.6-2.4) K/uL [place] # (Auto) 1.1 H (0.0-0.8) K/uL Eos # (Auto) 0.1 (0.0-0.7) K/uL Baso # (Auto) 0.0 (0.0-0.1) K/uL Nucleated RBC % 0.0 /100WBC Nucleated RBCs # 0 K/uL Sodium 140 (136-148) mmol/L Potassium 3.7 (3.5-5.1) mmol/L Chloride 106 (98-107) mmol/L Carbon Dioxide 23.1 (21.0-32.0) mmol/L BUN 8 (7.0-18.0) mg/dL Creatinine 1.1 (0.8-1.3) mg/dL Est Cr Clr Drug Dosing 87.56 mL/min Estimated GFR (MDRD) > 60.0 ml/min Glucose 90 (74-106) mg/dL Calcium 7.8 L (8.5-10.1) mg/dL Total Bilirubin 1.2 H (0.2-1.0) mg/dL AST 20 (15-37) IU/L ALT 24 (14-63) IU/L Alkaline Phosphatase 75 (46-116) U/L Total Protein 6.5 (6.4-8.2) g/dL Albumin 3.1 L (3.4-5.0) g/dL Globulin 3.4 (2.6-4.0) g/dL Albumin/Globulin Ratio 0.9 (0.9-1.6) Med Orders - Current: Current Medications Acetaminophen (Tylenol) 650 mg PO Q4H PRN PRN Reason: Pain/Fever Last Admin: 08/17/19 19:20 Dose: 650 mg Sodium Chloride (Normal Saline) 1,000 mls @ 125 mls/hr IV ASDIRECTED [facility] Last Admin: 08/18/19 03:58 Dose: 125 mls/hr Piperacillin Sod/Tazobactam (Sod 3.375 gm/ Sodium Chloride) 50 mls @ 100 mls/ hr IV Q6H [facility] Last Admin: 08/18/19 08:01 Dose: 100 mls/hr Levetiracetam (Keppra) 500 mg PO BID [facility] Last Admin: 08/17/19 21:19 Dose: 500 mg Lorazepam (Ativan) 1 mg IVPUSH Q4H PRN PRN Reason: Seizures Morphine Sulfate (Morphine) 2 mg IVPUSH Q4H PRN PRN Reason: Pain Last Admin: 08/18/19 04:02 Dose: 2 mg Ondansetron HCl (Zofran) 4 mg IVPUSH Q4H PRN PRN Reason: Nausea/Vomiting Discontinued Medications Sodium Chloride (Normal Saline) 1,000 mls @ 999 mls/hr IV .BOLUS ONE Stop: 08/16/19 21:40 Last Admin: 08/16/19 20:42 Dose: 999 mls/hr Levetiracetam 1,000 mg/ (Dextrose/Water) 110 mls @ 440 mls/hr IV Q12H [facility] Last Admin: 08/16/19 23:28 Dose: 440 mls/hr Iopamidol (Isovue-370 (76%)) 100 ml IVPUSH ONETIME STA Stop: 08/16/19 21:37 Last Admin: 08/16/19 21:37 Dose: 100 ml Lorazepam (Ativan) 1 mg IVPUSH ONETIME ONE Stop: 08/16/19 20:41 Last Admin: 08/16/19 20:46 Dose: 1 mg - Exam General: Alert, Oriented, Cooperative Lungs: Clear to Auscultation, Normal Respiratory Effort Cardiovascular: Regular Rate, Regular Rhythm GI/Abdominal Exam: Normal Bowel Sounds, Soft, Tender (RLQ improving) Extremities: No Pedal Edema Skin: Warm, Dry Neurological: No New Focal Deficit Psy/Mental Status: Alert, Normal Affect, Normal Mood Sepsis Event Note - Evaluation Sepsis Screening Result: No Definite Risk - Focused Exam Vital Signs: Vital Signs Temp Pulse Resp BP Pulse Ox 08/18/19 08:00 98.6 F 92 18 120/64 95 08/18/19 03:57 99.7 F 107 H 17 122/74 95 08/17/19 23:30 98.9 F 88 18 132/75 97 Date Exam was Performed: 08/18/19 Time Exam was Performed: 10:29 - Problem List Review Problem List Initiated/Reviewed/Updated: Yes - My Orders Last 24 Hours: My Active Orders 08/17/19 08:14 Consult to Physician [CONS] Routine 08/17/19 08:15 Intake and Output [RC] ASDIRECTED Notify Provider Consults [RC] ASDIRECTED Vital Signs [RC] PER UNIT ROUTINE Piperacillin/Tazobactam [Piperacil-Tazobact] 3.375 gm Sodium Chloride 0.9% [ Normal Saline] 50 ml IV Q6H Resuscitation Status Routine 08/17/19 08:16 Seizure Precautions [OM.PC] Routine 08/17/19 08:31 Acetaminophen [Tylenol] 650 mg PO Q4H PRN Ondansetron [Zofran] 4 mg IVPUSH Q4H PRN 08/17/19 08:35 LORazepam [Ativan] 1 mg IVPUSH Q4H PRN 08/17/19 09:20 Antiembolic Devices [RC] PER UNIT ROUTINE SCD [Sequential Compression Device] [OM.PC] Routine 08/17/19 11:08 Morphine 2 mg IVPUSH Q4H PRN 08/17/19 16:00 levETIRAcetam [Keppra] 500 mg PO BID 08/18/19 Breakfast Clear Liquid Diet [DIET] 08/19/19 05:11 CBC WITH AUTO DIFF [HEME] AM COMPREHENSIVE METABOLIC PN,CMP [CHEM] AM 08/20/19 05:11 CBC WITH AUTO DIFF [HEME] AM COMPREHENSIVE METABOLIC PN,CMP [CHEM] AM - Plan Plan:: 1. Seizure- no seizure since admission, on seizure precautions. Continue Keppra 500 BID. Will need outpatient neurology appt and EEG. Is not allowed to drive for 3 months. 2. RLQ pain-secondary to cecal diverticulitis- general surgery consulted. Dr. Manzano recommended advancing diet to clear liquid and transitioning to oral antibiotics once white count resolved. White count improving but not resolved. Also recommended total course of antibiotics of 14 days.
[2019-08-18] MEDS: levETIRAcetam 500 MG Tab PO SCH ×2 (08:40→20:22)
--- NOTE | 2019-08-18 09:04 | PCM.CONSN ---
- General Info Date of Service: 08/18/19 Functional Status: Reports: Pain Controlled, Tolerating Diet, Ambulating, Urinating. Denies: New Symptoms - Review of Systems General: Reports: No Symptoms HEENT: Reports: No Symptoms Pulmonary: Reports: No Symptoms Cardiovascular: Reports: No Symptoms Gastrointestinal: Reports: No Symptoms - Patient Data Vitals - Most Recent: Last Vital Signs Temp 37 C 08/18/19 08:00 Pulse 92 08/18/19 08:00 Resp 18 08/18/19 08:00 BP 120/64 08/18/19 08:00 Pulse Ox 95 08/18/19 08:00 Weight - Most Recent: 88.4 kg I&O - Last 24 Hours: Intake & Output 08/17/19 08/18/19 08/18/19 22:59 06:59 14:59 Intake Total 1725 1376 Output Total 2000 750 Balance -275 626 Lab Results Last 24 Hours: Laboratory Results - last 24 hr 08/18/19 08/18/19 Range/Units 05:45 05:45 WBC 12.43 H (4.0-11.0) K/uL RBC 4.66 (4.50-5.90) M/uL Hgb 13.8 (13.0-17.0) g/dL Hct 42.0 (38.0-50.0) % MCV 90.1 (80.0-98.0) fL MCH 29.6 (27.0-32.0) pg MCHC 32.9 (31.0-37.0) g/dL RDW Std Deviation 43.1 (28.0-62.0) fl RDW Coeff of Ileana 13 (11.0-15.0) % Plt Count 217 (150-400) K/uL MPV 11.00 (7.40-12.00) fL Neut % (Auto) 75.9 (48.0-80.0) % Lymph % (Auto) 14.6 L (16.0-40.0) % [place] % (Auto) 8.8 (0.0-15.0) % Eos % (Auto) 0.4 (0.0-7.0) % Baso % (Auto) 0.3 (0.0-1.5) % Neut # (Auto) 9.4 H (1.4-5.7) K/uL Lymph # (Auto) 1.8 (0.6-2.4) K/uL [place] # (Auto) 1.1 H (0.0-0.8) K/uL Eos # (Auto) 0.1 (0.0-0.7) K/uL Baso # (Auto) 0.0 (0.0-0.1) K/uL Nucleated RBC % 0.0 /100WBC Nucleated RBCs # 0 K/uL Sodium 140 (136-148) mmol/L Potassium 3.7 (3.5-5.1) mmol/L Chloride 106 (98-107) mmol/L Carbon Dioxide 23.1 (21.0-32.0) mmol/L BUN 8 (7.0-18.0) mg/dL Creatinine 1.1 (0.8-1.3) mg/dL Est Cr Clr Drug Dosing 87.56 mL/min Estimated GFR (MDRD) > 60.0 ml/min Glucose 90 (74-106) mg/dL Calcium 7.8 L (8.5-10.1) mg/dL Total Bilirubin 1.2 H (0.2-1.0) mg/dL AST 20 (15-37) IU/L ALT 24 (14-63) IU/L Alkaline Phosphatase 75 (46-116) U/L Total Protein 6.5 (6.4-8.2) g/dL Albumin 3.1 L (3.4-5.0) g/dL Globulin 3.4 (2.6-4.0) g/dL Albumin/Globulin Ratio 0.9 (0.9-1.6) Med Orders - Current: Current Medications Acetaminophen (Tylenol) 650 mg PO Q4H PRN PRN Reason: Pain/Fever Last Admin: 08/17/19 19:20 Dose: 650 mg Sodium Chloride (Normal Saline) 1,000 mls @ 125 mls/hr IV ASDIRECTED [facility] Last Admin: 08/18/19 03:58 Dose: 125 mls/hr Piperacillin Sod/Tazobactam (Sod 3.375 gm/ Sodium Chloride) 50 mls @ 100 mls/ hr IV Q6H [facility] Last Admin: 08/18/19 08:01 Dose: 100 mls/hr Levetiracetam (Keppra) 500 mg PO BID [facility] Last Admin: 08/18/19 08:40 Dose: 500 mg Lorazepam (Ativan) 1 mg IVPUSH Q4H PRN PRN Reason: Seizures Morphine Sulfate (Morphine) 2 mg IVPUSH Q4H PRN PRN Reason: Pain Last Admin: 08/18/19 04:02 Dose: 2 mg Ondansetron HCl (Zofran) 4 mg IVPUSH Q4H PRN PRN Reason: Nausea/Vomiting Discontinued Medications Sodium Chloride (Normal Saline) 1,000 mls @ 999 mls/hr IV .BOLUS ONE Stop: 08/16/19 21:40 Last Admin: 08/16/19 20:42 Dose: 999 mls/hr Levetiracetam 1,000 mg/ (Dextrose/Water) 110 mls @ 440 mls/hr IV Q12H [facility] Last Admin: 08/16/19 23:28 Dose: 440 mls/hr Iopamidol (Isovue-370 (76%)) 100 ml IVPUSH ONETIME STA Stop: 08/16/19 21:37 Last Admin: 08/16/19 21:37 Dose: 100 ml Lorazepam (Ativan) 1 mg IVPUSH ONETIME ONE Stop: 08/16/19 20:41 Last Admin: 08/16/19 20:46 Dose: 1 mg - Exam General: Alert, Oriented, Cooperative Lungs: Normal Respiratory Effort Cardiovascular: Regular Rate GI/Abdominal Exam: Soft, Non-Tender, No Distention, No Mass Back Exam: Normal Inspection Extremities: Normal Inspection Sepsis Event Note - Evaluation Sepsis Screening Result: No Definite Risk - Focused Exam Vital Signs: Vital Signs Temp Pulse Resp BP Pulse Ox 08/18/19 08:00 37 C 92 18 120/64 95 08/18/19 03:57 37.6 C 107 H 17 122/74 95 08/17/19 23:30 37.2 C 88 18 132/75 97 Date Exam was Performed: 08/18/19 Time Exam was Performed: 09:00 Consult PN Assessment/Plan Procedures: Procedures EMERGENCY DEPT VISIT (10/23/17) EMERGENCY DEPT VISIT (02/11/17) IMMUNIZATION ADMIN (02/11/17) TDAP VACCINE 7 YRS/> IM (02/11/17) THER/PROPH/DIAG INJ SC/IM (02/11/17) (1) Cecal diverticulitis SNOMED Code(s): 189479040 Code(s): K57.32 - DVTRCLI OF LG INT W/O PERFORATION OR ABSCESS W/O BLEEDING Current Visit: Yes Problem List Initiated/Reviewed/Updated: Yes Plan: Patient is a 43 year old male with cecal diverticulitis. He appears to be responding to the antibiotics. He feels much better this morning. He has an appetite and his pain is mostly resolved. Vitals are stable. Ok to advance diet as tolerated. Would keep IV antibiotics until WBC is within normal range. Then switch to oral antibiotics. Would continue antibiotics for a total course of 14 days. Will see in clinic in 2-3 weeks for follow up and to discuss follow up colonoscopy. Call with any questions or concerns. Will sign off at this time.
[2019-08-18] MEDS: Acetaminophen 325 MG Tab PO PRN (16:29)
[2019-08-19] MEDS: Piperacillin/Tazobactam 3.375 GM in Sodium Chloride 0.9% 50 ML IV SCH ×2 (03:13→08:54)
[2019-08-19 06:44] LABS: BLOOD UREA NITROGEN,BUN 5 mg/dL (7.0-18.0); CARBON DIOXIDE,CO2 27.9 mmol/L (21.0-32.0); CHLORIDE,CL 106 mmol/L (98-107); GLUCOSE RANDOM 95 mg/dL (74-106); SODIUM,NA 141 mmol/L (136-148)
--- NOTE | 2019-08-19 08:33 | PCM.DCSUM1 ---
<Erika Staples - Last Filed: 08/19/19 10:27> Discharge Summary - Hospital Course HPI Initial Comments: Admission Date: 08/16/19 Discharge Date: 08/19/19 Admission Diagnosis: 1. Seizure 2. Right lower quadrant pain with findings of cecal diverticulitis on CT Discharge Diagnosis: 1. Seizure 2. Right lower quadrant pain with findings of cecal diverticulitis on CT- resolved Procedures: None Consults: Dr. Manzano- general surgery Hospital Course: The patient is a 43 year old male who presented to the ER after two seizures witnessed at home. History of seizure 8 years ago which he never followed up on. HE had been drinking heavily the night before after being sober for 7 months. He also complained of RLQ pain and fever/chills. In the ER, work up had leukocytosis of 16 and elevated lactate of 4. UA showed no sign of infection but did have occult blood. UDS and alcohol was negative. Head Ct showed nothing acute. CT ab/pelvis showed inflammation at tip of cecum which could be mild appendicitis vs colitis. In the ER he, he was given IVF and Ativan. The ER physician did speak with Dr. Olmos, neurosurgery, at [facility] in [place], who recommended loading dose of Keppra and then Keppra 500 mg BID with follow up with neurology and EEG. He was admitted to the medical floor. HE was placed on seizure precautions and started on Keppra 500 mg BID. He did not have any additional seizures while admitted. Dr. Manzano, general surgery, was consulted for the abdominal pain. She had another radiologist review the images and they belied he had cecal diverticulitis. She recommended bowel rest , antibiotics and IVF. Over the course of his stay, his white count resolved, pain resolved, and diet was advanced as tolerated. By day of discharge, patient felt better and wanted to go home. Disposition: Home Discharge Condition: vitals stable, tolerating oral diet, ambulating without difficulty, symptom improvement Discharge Instructions: advance diet as tolerated, activity as tolerated, take medications as prescribed. Symptoms to report to physician include fever/chills , chest pain, shortness of breath, abdominal pain, erythema, drainage/discharge , or seizure activity not improving as expected. No driving for 3 months or until cleared by neurology Discharge Medications: Ciprofloxacin HCl [Cipro] 500 mg PO BID 12 Days #24 tablet 08/19/19 [Rx] levETIRAcetam [Keppra] 500 mg PO BID 14 Days #28 tablet 08/19/19 [Rx] metroNIDAZOLE [Flagyl] 500 mg PO Q8H 12 Days #36 tab 08/19/19 [Rx] Follow-up: 1. PCP- Zakia- 08/26/19 2. Neurology- Gopi- 08/24/19 3. General Surgery- Natacha 09/03/19 - Discharge Data Discharge Date: 08/19/19 Discharge Disposition: Home, Self-Care 01 Condition: Good - Referral to Home Health Primary Care Physician: PCP None - Patient Summary/Data Consults: Consultations 08/17/19 08:14 Consult to Physician [CONS] Routine - Discharge Plan Prescriptions/Med Rec: Ciprofloxacin HCl [Cipro] 500 mg PO BID 12 Days #24 tablet levETIRAcetam [Keppra] 500 mg PO BID 14 Days #28 tablet metroNIDAZOLE [Flagyl] 500 mg PO Q8H 12 Days #36 tab Home Medications: Home Meds Ciprofloxacin HCl [Cipro] 500 mg PO BID 12 Days #24 tablet 08/19/19 [Rx] levETIRAcetam [Keppra] 500 mg PO BID 14 Days #28 tablet 08/19/19 [Rx] metroNIDAZOLE [Flagyl] 500 mg PO Q8H 12 Days #36 tab 08/19/19 [Rx] Patient Handouts: Diverticulitis, [id number], Levetiracetam tablets, Seizure , Adult, [id number] Referrals: Dorita Manzano MD [Physician] - 09/03/19 8:30 am Martina Nguyễn MD [Physician] - 08/24/19 1:00 pm (Will be seeing Monica her [employer] ) Apple oKehler PA [Physician Procedures Rn] - 08/26/19 10:00 am - Discharge Summary/Plan Comment DC Time >30 min.: No - Patient Data Vitals - Most Recent: Last Vital Signs Temp 99.5 F 08/19/19 03:12 Pulse 84 08/19/19 03:12 Resp 16 08/19/19 03:12 BP 134/82 08/19/19 03:12 Pulse Ox 97 08/19/19 03:12 Weight - Most Recent: 88.4 kg I&O - Last 24 hours: Intake & Output 08/18/19 08/19/19 08/19/19 22:59 06:59 14:59 Intake Total 50 400 Balance 50 400 Lab Results - Last 24 hrs: Laboratory Results - last 24 hr 08/19/19 08/19/19 Range/Units 05:50 05:50 WBC 11.00 (4.0-11.0) K/uL RBC 4.70 (4.50-5.90) M/uL Hgb 13.7 (13.0-17.0) g/dL Hct 42.0 (38.0-50.0) % MCV 89.4 (80.0-98.0) fL MCH 29.1 (27.0-32.0) pg MCHC 32.6 (31.0-37.0) g/dL RDW Std Deviation 41.9 (28.0-62.0) fl RDW Coeff of Ileana 13 (11.0-15.0) % Plt Count 213 (150-400) K/uL MPV 11.20 (7.40-12.00) fL Neut % (Auto) 72.8 (48.0-80.0) % Lymph % (Auto) 16.0 (16.0-40.0) % Dolores % (Auto) 9.5 (0.0-15.0) % Eos % (Auto) 1.4 (0.0-7.0) % Baso % (Auto) 0.3 (0.0-1.5) % Neut # (Auto) 8.0 H (1.4-5.7) K/uL Lymph # (Auto) 1.8 (0.6-2.4) K/uL Dolores # (Auto) 1.0 H (0.0-0.8) K/uL Eos # (Auto) 0.2 (0.0-0.7) K/uL Baso # (Auto) 0.0 (0.0-0.1) K/uL Nucleated RBC % 0.0 /100WBC Nucleated RBCs # 0 K/uL Sodium 141 (136-148) mmol/L Potassium 4.0 (3.5-5.1) mmol/L Chloride 106 (98-107) mmol/L Carbon Dioxide 27.9 (21.0-32.0) mmol/L BUN 5 L (7.0-18.0) mg/dL Creatinine 1.1 (0.8-1.3) mg/dL Est Cr Clr Drug Dosing 87.56 mL/min Estimated GFR (MDRD) > 60.0 ml/min Glucose 95 (74-106) mg/dL Calcium 8.5 (8.5-10.1) mg/dL Total Bilirubin 0.8 (0.2-1.0) mg/dL AST 18 (15-37) IU/L ALT 22 (14-63) IU/L Alkaline Phosphatase 68 (46-116) U/L Total Protein 6.6 (6.4-8.2) g/dL Albumin 3.0 L (3.4-5.0) g/dL Globulin 3.6 (2.6-4.0) g/dL Albumin/Globulin Ratio 0.8 L (0.9-1.6) Med Orders - Current: Current Medications Acetaminophen (Tylenol) 650 mg PO Q4H PRN PRN Reason: Pain/Fever Last Admin: 08/18/19 16:29 Dose: 650 mg Piperacillin Sod/Tazobactam (Sod 3.375 gm/ Sodium Chloride) 50 mls @ 100 mls/ hr IV Q6H [facility] Last Admin: 08/19/19 03:13 Dose: 100 mls/hr Levetiracetam (Keppra) 500 mg PO BID [facility] Last Admin: 08/18/19 20:22 Dose: 500 mg Lorazepam (Ativan) 1 mg IVPUSH Q4H PRN PRN Reason: Seizures Morphine Sulfate (Morphine) 2 mg IVPUSH Q4H PRN PRN Reason: Pain Last Admin: 08/18/19 04:02 Dose: 2 mg Ondansetron HCl (Zofran) 4 mg IVPUSH Q4H PRN PRN Reason: Nausea/Vomiting Discontinued Medications Sodium Chloride (Normal Saline) 1,000 mls @ 999 mls/hr IV .BOLUS ONE Stop: 08/16/19 21:40 Last Admin: 08/16/19 20:42 Dose: 999 mls/hr Levetiracetam 1,000 mg/ (Dextrose/Water) 110 mls @ 440 mls/hr IV Q12H [facility] Last Admin: 08/16/19 23:28 Dose: 440 mls/hr Sodium Chloride (Normal Saline) 1,000 mls @ 125 mls/hr IV ASDIRECTED CARLOTA Last Admin: 08/18/19 03:58 Dose: 125 mls/hr Iopamidol (Isovue-370 (76%)) 100 ml IVPUSH ONETIME STA Stop: 08/16/19 21:37 Last Admin: 08/16/19 21:37 Dose: 100 ml Lorazepam (Ativan) 1 mg IVPUSH ONETIME ONE Stop: 08/16/19 20:41 Last Admin: 08/16/19 20:46 Dose: 1 mg <Saulo Block - Last Filed: 08/19/19 11:05> Discharge Summary - Hospital Course HPI Initial Comments: I have seen and evaluated the patient and agree with the residents note unless specified in my note - Referral to Home Health Primary Care Physician: PCP None - Patient Summary/Data Consults: Consultations 08/17/19 08:14 Consult to Physician [CONS] Routine - Patient Data Vitals - Most Recent: Last Vital Signs Temp 36.8 C 08/19/19 08:00 Pulse 87 08/19/19 08:00 Resp 18 08/19/19 08:00 BP 137/88 08/19/19 08:00 Pulse Ox 96 08/19/19 08:00 I&O - Last 24 hours: Intake & Output 08/18/19 08/19/19 08/19/19 22:59 06:59 14:59 Intake Total 50 400 Balance 50 400 Lab Results - Last 24 hrs: Laboratory Results - last 24 hr 08/19/19 08/19/19 Range/Units 05:50 05:50 WBC 11.00 (4.0-11.0) K/uL RBC 4.70 (4.50-5.90) M/uL Hgb 13.7 (13.0-17.0) g/dL Hct 42.0 (38.0-50.0) % MCV 89.4 (80.0-98.0) fL MCH 29.1 (27.0-32.0) pg MCHC 32.6 (31.0-37.0) g/dL RDW Std Deviation 41.9 (28.0-62.0) fl RDW Coeff of Ileana 13 (11.0-15.0) % Plt Count 213 (150-400) K/uL MPV 11.20 (7.40-12.00) fL Neut % (Auto) 72.8 (48.0-80.0) % Lymph % (Auto) 16.0 (16.0-40.0) % Dolores % (Auto) 9.5 (0.0-15.0) % Eos % (Auto) 1.4 (0.0-7.0) % Baso % (Auto) 0.3 (0.0-1.5) % Neut # (Auto) 8.0 H (1.4-5.7) K/uL Lymph # (Auto) 1.8 (0.6-2.4) K/uL Dolores # (Auto) 1.0 H (0.0-0.8) K/uL Eos # (Auto) 0.2 (0.0-0.7) K/uL Baso # (Auto) 0.0 (0.0-0.1) K/uL Nucleated RBC % 0.0 /100WBC Nucleated RBCs # 0 K/uL Sodium 141 (136-148) mmol/L Potassium 4.0 (3.5-5.1) mmol/L Chloride 106 (98-107) mmol/L Carbon Dioxide 27.9 (21.0-32.0) mmol/L BUN 5 L (7.0-18.0) mg/dL Creatinine 1.1 (0.8-1.3) mg/dL Est Cr Clr Drug Dosing 87.56 mL/min Estimated GFR (MDRD) > 60.0 ml/min Glucose 95 (74-106) mg/dL Calcium 8.5 (8.5-10.1) mg/dL Total Bilirubin 0.8 (0.2-1.0) mg/dL AST 18 (15-37) IU/L ALT 22 (14-63) IU/L Alkaline Phosphatase 68 (46-116) U/L Total Protein 6.6 (6.4-8.2) g/dL Albumin 3.0 L (3.4-5.0) g/dL Globulin 3.6 (2.6-4.0) g/dL Albumin/Globulin Ratio 0.8 L (0.9-1.6) Med Orders - Current: Current Medications Acetaminophen (Tylenol) 650 mg PO Q4H PRN PRN Reason: Pain/Fever Last Admin: 08/18/19 16:29 Dose: 650 mg Piperacillin Sod/Tazobactam (Sod 3.375 gm/ Sodium Chloride) 50 mls @ 100 mls/ hr IV Q6H [facility] Last Admin: 08/19/19 08:54 Dose: 100 mls/hr Levetiracetam (Keppra) 500 mg PO BID [facility] Last Admin: 08/19/19 08:53 Dose: 500 mg Lorazepam (Ativan) 1 mg IVPUSH Q4H PRN PRN Reason: Seizures Morphine Sulfate (Morphine) 2 mg IVPUSH Q4H PRN PRN Reason: Pain Last Admin: 08/18/19 04:02 Dose: 2 mg Ondansetron HCl (Zofran) 4 mg IVPUSH Q4H PRN PRN Reason: Nausea/Vomiting Discontinued Medications Sodium Chloride (Normal Saline) 1,000 mls @ 999 mls/hr IV .BOLUS ONE Stop: 08/16/19 21:40 Last Admin: 08/16/19 20:42 Dose: 999 mls/hr Levetiracetam 1,000 mg/ (Dextrose/Water) 110 mls @ 440 mls/hr IV Q12H [facility] Last Admin: 08/16/19 23:28 Dose: 440 mls/hr Sodium Chloride (Normal Saline) 1,000 mls @ 125 mls/hr IV ASDIRECTED [facility] Last Admin: 08/18/19 03:58 Dose: 125 mls/hr Iopamidol (Isovue-370 (76%)) 100 ml IVPUSH ONETIME STA Stop: 08/16/19 21:37 Last Admin: 08/16/19 21:37 Dose: 100 ml Lorazepam (Ativan) 1 mg IVPUSH ONETIME ONE Stop: 08/16/19 20:41 Last Admin: 08/16/19 20:46 Dose: 1 mg
[2019-08-19] MEDS: levETIRAcetam 500 MG Tab PO SCH (08:53)
== END 2019-08-19 12:00 | disposition home or self-care (01) ==
LOC: MW.ED 20:26 → MW.MS 23:05
PROVIDERS: ADMIT Internal Medicine; ATTEND Internal Medicine
DX: G40.409 Other generalized epilepsy and epileptic syndromes, not intractable, without status epilepticus (principal); K57.32 Diverticulitis of large intestine without perforation or abscess without bleeding; F17.200 Nicotine dependence, unspecified, uncomplicated
CPT/HCPCS: 36415; 70450; 74177; 80048; 80053; 80305; 80307; 81001; 83605; 85025; 93005; 96361; 96365; 96366; 96367; 96375; 96376; 99285; A9270; G0378; J1953; J2060; J2270; J2543; J7030; J7050; J7060; Q9967; 99283

== ENCOUNTER 2019-12-02 07:27 | Day surgery (SDC) | payer BC ==
[~2019-12-02 07:27] MED LIST: Lactated Ringers 1,000 ML IV SCH; Lidocaine 2% 5 ML SDV ONE; Propofol 200 MG/20 ML SDV ONE; Sodium Chloride 0.9% 10 ML SDV IV PRN; Sodium Chloride 0.9% 10 ML Syringe FLUSH PRN; Sodium Chloride 0.9% 2.5 ML Syringe FLUSH PRN; fentaNYL 100 MCG/2 ML SDV ONE
--- NOTE | 2019-12-02 08:18 | PCM.PREANE ---
Preanesthetic Assessment - Anesthesia/Transfusion/Family Hx Anesthesia History: Prior Anesthesia Without Reaction Family History of Anesthesia Reaction: No Transfusion History: No Prior Transfusion(s) Intubation History: Unknown - Review of Systems General: No Symptoms Pulmonary: No Symptoms Cardiovascular: No Symptoms Gastrointestinal: Other (family h/o colon cancer, cecal diverticulitis 3 months ago) Neurological: No Symptoms Other: Reports: None - Physical Assessment Height: 5 ft 10 in Weight: 92.533 kg ASA Class: 2 Mental Status: Alert & Oriented x3 Airway Class: Mallampati = 2 Dentition: Reports: Normal Dentition Thyro-Mental Finger Breadths: 3 Mouth Opening Finger Breadths: 3 ROM/Head Extension: Full Lungs: Clear to Auscultation, Normal Respiratory Effort Cardiovascular: Regular Rate, Regular Rhythm - Allergies Allergies/Adverse Reactions: Allergies Allergy/AdvReac Type Severity Reaction Status Date / Time No Known Allergies Allergy Verified 12/01/19 09:13 - Blood Blood Available: No - Anesthesia Plan Pre-Op Medication Ordered: None - Acknowledgements Anesthesia Type Planned: MAC Pt an Appropriate Candidate for the Planned Anesthesia: Yes Alternatives and Risks of Anesthesia Discussed w Pt/Guardian: Yes Pt/Guardian Understands and Agrees with Anesthesia Plan: Yes PreAnesthesia Questionnaire HEENT History: Reports: Hard of Hearing Cardiovascular History: Reports: None Respiratory History: Reports: None Gastrointestinal History: Reports: Other (See Below) Other Gastrointestinal History: occasional heartburn, hx of cecal diverticulitis 3 months ago- resolved with antibiotics Genitourinary History: Reports: None Musculoskeletal History: Reports: Arthritis, Fracture Other Musculoskeletal History: hx fx fingers, wrist and hand Neurological History: Reports: Concussion, Seizure Other Neuro History: 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, last seizure was in July of 2019- 9 y ears before that (controlled by meds) Psychiatric History: Reports: None Endocrine/Metabolic History: Reports: None Hematologic History: Reports: None Immunologic History: Reports: None Oncologic (Cancer) History: Reports: None Dermatologic History: Reports: None - Infectious Disease History Infectious Disease History: Reports: Chicken Pox - Past Surgical History Head Surgeries/Procedures: Reports: None HEENT Surgical History: Reports: None Cardiovascular Surgical History: Reports: None Respiratory Surgical History: Reports: None GI Surgical History: Reports: Appendectomy, Hernia, Inguinal Male Surgical History: Reports: None Endocrine Surgical History: Reports: None Neurological Surgical History: Reports: None Musculoskeletal Surgical History: Reports: Arthroscopic Knee, Other (See Below) Other Musculoskeletal Surgeries/Procedures:: rt knee scope x4, left hand surgery Oncologic Surgical History: Reports: None Dermatological Surgical History: Reports: None - SUBSTANCE USE Smoking Status *Q: Light Tobacco Smoker Tobacco Use Within Last Twelve Months: Snuff/Dip - HOME MEDS Home Medications: Home Meds lamoTRIgine [Lamotrigine] 100 mg PO BID 12/01/19 [History] - CURRENT (IN HOUSE) MEDS Current Meds: Current Medications Lactated Ringer's (Ringers, Lactated) 1,000 mls @ 125 mls/hr IV ASDIRECTED CARLOTA Sodium Chloride (Saline Flush) 10 ml FLUSH ASDIRECTED PRN PRN Reason: Keep Vein Open Sodium Chloride (Saline Flush) 2.5 ml FLUSH ASDIRECTED PRN PRN Reason: Keep Vein Open Sodium Chloride (Saline Flush) 10 ml FLUSH ASDIRECTED PRN PRN Reason: Keep Vein Open Sodium Chloride (Saline Flush) 2.5 ml FLUSH ASDIRECTED PRN PRN Reason: Keep Vein Open Sodium Chloride (Normal Saline) 10 ml IV ASDIRECTED PRN PRN Reason: IV Use Discontinued Medications Fentanyl (Sublimaze) Confirm Administered Dose 100 mcg .ROUTE .STK-MED ONE Stop: 12/02/19 07:18 Lidocaine (Xylocaine-Mpf 2%) Confirm Administered Dose 5 ml .ROUTE .STK-MED ONE Stop: 12/02/19 07:18 Propofol (Diprivan 20 Ml) Confirm Administered Dose 400 mg .ROUTE .STK-MED ONE Stop: 12/02/19 07:18
[2019-12-02] MEDS ORDERED: Glycopyrrolate 0.2 MG/ML SDV ONE (09:29)
[2019-12-02] MEDS ORDERED: Midazolam 1 MG/ML 2 ML SDV ONE (09:29)
--- NOTE | 2019-12-02 10:13 | PCM.OPNOTE ---
- General Post-Op/Procedure Note Date of Surgery/Procedure: 12/02/19 Operative Procedure(s): Diagnostic colonoscopy Findings: Normal appearing colon. No evidence of cecal diverticuli Pre Op Diagnosis: Cecal diverticulitis Post-Op Diagnosis: Normal colonoscopy Anesthesia Technique: ANTONIO Primary Surgeon: Dorita Manzano Condition: Good
--- NOTE | 2019-12-02 10:42 | PCM48HPAN ---
Post Anesthesia Note - EVALUATION WITHIN 48HRS OF ANESTHETIC Vital Signs in Normal Range: Yes Patient Participated in Evaluation: Yes Respiratory Function Stable: Yes Airway Patent: Yes Cardiovascular Function Stable: Yes Hydration Status Stable: Yes Pain Control Satisfactory: Yes Nausea and Vomiting Control Satisfactory: Yes Mental Status Recovered: Yes Vital Signs: Last Vital Signs Temp 37.1 C 12/02/19 09:58 Pulse 79 12/02/19 10:24 Resp 11 L 12/02/19 10:24 BP 103/53 L 12/02/19 10:24 Pulse Ox 98 12/02/19 10:24 - COMMENTS/OBSERVATIONS Free Text/Narrative:: No anesthesia problems
--- NOTE | 2019-12-02 10:42 | PCM.POSTAN ---
POST ANESTHESIA ASSESSMENT - MENTAL STATUS Mental Status: Alert, Oriented - VITAL SIGNS Vital Signs: Last Vital Signs Temp 37.1 C 12/02/19 09:58 Pulse 79 12/02/19 10:24 Resp 11 L 12/02/19 10:24 BP 103/53 L 12/02/19 10:24 Pulse Ox 98 12/02/19 10:24 - RESPIRATORY Respiratory Status: Respiratory Rate WNL, Airway Patent, O2 Saturation Stable - CARDIOVASCULAR CV Status: Pulse Rate WNL, Blood Pressure Stable - GASTROINTESTINAL GI Status: No Symptoms - PAIN Pain Score: 0 - POST OP HYDRATION Hydration Status: Adequate & Stable - OBSERVATIONS Free Text/Narrative:: No anesthesia problems
--- NOTE | 2019-12-02 13:07 | OR ---
SURGEON: DORITA MANZANO MD DATE OF PROCEDURE: 12/02/2019 PREOPERATIVE DIAGNOSIS: Cecal diverticulitis. POSTOPERATIVE DIAGNOSIS: Normal colonoscopy. PROCEDURE PERFORMED: Diagnostic colonoscopy. PRIMARY SURGEON: Dorita Manzano MD ANESTHESIA: MAC. INSTRUMENT USED: Olympus colonoscope. EXTENT OF EXAM: To the cecum. PREPARATION: Good. LIMITATIONS: None. INDICATIONS FOR EXAMINATION: The patient is a 43-year-old male who earlier this spring was diagnosed with cecal diverticulitis. He was treated successfully with IV antibiotics. He is now back for a followup colonoscopy. I explained the procedure; expected perioperative course; and the risks including bleeding, infection, or damage to surrounding structures including perforation. The patient verbalized understanding and wishes to proceed. PROCEDURE IN DETAIL: The patient was brought into the endoscopy suite and placed in the left lateral decubitus position. A time-out was completed verifying the patient's name, age, date of , allergies, and procedure to be performed. Monitored anesthesia care was induced and continuous oxygen was provided via nasal cannula throughout the procedure. After adequate sedation was achieved, a digital rectal exam was performed. This exam was within normal limits. A well-lubricated colonoscope was inserted in the rectum and advanced under direct visualization to the level of the cecum. The cecum was identified by both visual and anatomic landmarks. A photograph was taken of the cecal cap as well as with the scope retroflexed within the cecum. The scope was then fully withdrawn while examining the color, texture, anatomy, and integrity of the mucosa from the cecum to the anal canal. I closely inspected the cecum and saw no evidence of diverticula. The remainder of the colonic mucosa appeared normal. There was no evidence of diverticula within the sigmoid colon. The scope was then brought into the rectum and retroflexed to allow visualization of the anal canal opening. This appeared normal and a photograph was taken. The scope was then straightened out and fully withdrawn. The cecum to anus time was 9 minutes. The patient tolerated the procedure well and was transferred to the PACU in stable condition. ENDOSCOPIC DIAGNOSIS: Normal colonoscopy. RECOMMENDATIONS: I visited with the patient in the postoperative care area. The diverticula that he has may be quite small, or the patient actually had an episode of a stump appendicitis. Either way, the patient will not need another colonoscopy for 10 years. We discussed these findings, and he should come back to be seen immediately should his symptoms return. Follow up in clinic in 10 years. RICH BLACKMON /[id number] IDA
== END 2019-12-02 11:00 | disposition home or self-care (01) ==
LOC: MW.SDS 07:27
PROVIDERS: ATTEND Surgery
DX: Z09 Encounter for follow-up examination after completed treatment for conditions other than malignant neoplasm (principal); F17.290 Nicotine dependence, other tobacco product, uncomplicated
CPT/HCPCS: 45378; J2001; J2250; J2704; J3010; J3490; J7120; 00811

== ENCOUNTER 2021-02-16 13:18 | Emergency (ER) | payer BC ==
--- NOTE | 2021-02-16 15:01 | EDM.PDOC ---
ED HPI GENERAL MEDICAL PROBLEM - General Chief Complaint: Laceration Stated Complaint: R HAND CUT W/HUNTING ACCIDENT Time Seen by Provider: 02/16/21 14:22 Source of Information: Reports: Patient History Limitations: Reports: No Limitations - History of Present Illness INITIAL COMMENTS - FREE TEXT/NARRATIVE: HISTORY AND PHYSICAL: History of present illness: Patient is a 45-year-old male who presents emergency room today with concern of right hand fourth digit laceration that occurred just prior to arrival to the emergency room. Patient states that he is up-to-date on his tetanus vaccine within 5 years. Patient states that he was bow hunting with his son when the string of the bow got caught with the instrumentation. Patient states when it released it caught the side of his finger and states that he sustained a small laceration. Patient states he is fully able to move the finger and denies any other symptoms or concerns. Patient denies fever, chills, chest pain, shortness of breath, or cough. Denies headache, neck stiff ness, change in vision, syncope, or near syncope. Denies nausea, vomiting, abdominal pain, diarrhea, constipation, or dysuria. Has not noted any blood in urine or stool. Patient has been eating and drinking appropriately. Review of systems: As per history of present illness and below otherwise all systems reviewed and negative. Past medical history: As per history of present illness and as reviewed below otherwise noncontributory. Surgical history: As per history of present illness and as reviewed below otherwise noncontributory. Social history: See social history for further information Family history: As per history of present illness and as reviewed below otherwise noncontributory. Physical exam: General: Patient is alert, oriented, and in no acute distress. Patient sitting comfortably on exam table. Vitals stable and reviewed by me. HEENT: Atraumatic, normocephalic, pupils equal and reactive bilaterally, negative for conjunctival pallor or scleral icterus, mucous membranes moist, throat clear, neck supple, nontender, trachea midline. No drooling or trismus noted. No meningeal signs. No hot potato voice noted. Lungs: Clear to auscultation, breath sounds equal bilaterally, chest nontender. Heart: S1S2, regular rate and rhythm without overt murmur Abdomen: Soft, nondistended, nontender. Negative for masses or h epatosplenomegaly. Negative for costovertebral tenderness. Pelvis: Stable nontender. Genitourinary: Deferred. Rectal: Deferred. Skin: Intact, warm, dry. No lesions or rashes noted. Extremities: There is a 2 cm subcutaneous irregular laceration of the right hand lateral side of the fourth digit with hemostasis. There is also another small 1 cm more superficial laceration in parallel to the larger laceration. Patient does have full range of motion of the affected digit without deficit. Patient otherwise has full range of motion of the remainder right upper extremity otherwise, atraumatic, negative for cords or calf pain. Neurovascular unremarkable. Neuro: Awake, alert, oriented. Cranial nerves II through XII unremarkable. Cerebellum unremarkable. Motor and sensory unremarkable throughout. Exam nonfocal. Medical Decision Making: Signs and symptoms that were prompt return to the ED thoroughly discussed with patient. Discussed importance for follow-up with a primary care provider. Voices understanding and is agreeable to plan of care. Denies any further questions or concerns at this time. Diagnostics: None Therapeutics: Lidocaine, sutures, sterile dressing placed by nursing staff Prescription: None Impression: Finger laceration, right, fourth digit Plan: 1. Keep the area clean and dry. Continue to monitor for signs of infection as discussed. Sutures to be removed in 7-10 days. 2. Tylenol and/or ibuprofen as directed and as needed for pain management and discomfort. 3. Please follow-up with your primary care provider as discussed. Return to the ED as needed and as discussed. Definitive disposition and diagnosis as appropriate pending reevaluation and review of above. R hand Pain Score (Numeric/FACES): 2 - Related Data Allergies Allergy/AdvReac Type Severity Reaction Status Date / Time No Known Allergies Allergy Verified 02/16/21 14:39 Home Meds: Home Meds lamoTRIgine [Lamotrigine] 125 mg PO BID 12/01/19 [History] Past Medical History HEENT History: Reports: Hard of Hearing Cardiovascular History: Reports: None Respiratory History: Reports: None Gastrointestinal History: Reports: None Other Gastrointestinal History: occasional heartburn, hx of cecal diverticulitis 3 months ago- resolved with antibiotics Genitourinary History: Reports: None Musculoskeletal History: Reports: None Other Musculoskeletal History: hx fx fingers, wrist and hand Neurological History: Reports: Seizure Other Neuro History: 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, last seizure was in July of 2019- 9 years before that (controlled by meds) Psychiatric History: Reports: None Endocrine/Metabolic History: Reports: None Hematologic History: Reports: None Immunologic History: Reports: None Oncologic (Cancer) History: Reports: None Dermatologic History: Reports: None - Infectious Disease History Infectious Disease History: Reports: Chicken Pox - Past Surgical History Head Surgeries/Procedures: Reports: None HEENT Surgical History: Reports: None Cardiovascular Surgical History: Reports: None Respiratory Surgical History: Reports: None GI Surgical History: Reports: Appendectomy, Hernia Repair/Other Male Surgical History: Reports: None Endocrine Surgical History: Reports: None Neurological Surgical History: Reports: None Musculoskeletal Surgical History: Reports: Other (See Below) Other Musculoskeletal Surgeries/Procedures:: 4 surgeries to R knee, L ankle fx with surgery, R hand surgery, R wrist surgery. Oncologic Surgical History: Reports: None Dermatological Surgical History: Reports: None Social & Family History - Family History Family Medical History: No Pertinent Family History - Tobacco Use Tobacco Use Status *Q: Current Every Day Tobacco User Years of Tobacco use: 3 Packs/Tins Daily: 0.3 - Caffeine Use Caffeine Use: Reports: Coffee - Recreational Drug Use Recreational Drug Use: No ED ROS GENERAL - Review of Systems Review Of Systems: Comprehensive ROS is negative, except as noted in HPI. ED EXAM, SKIN/RASH Exam: See Below (see dictation) ED SKIN PROCEDURES - Laceration/Wound Repair right Sides of Digit - 4th (Ring) Appearance: Subcutaneous, Irregular, Clean Distal NVT: Neuro & Vascular Intact, No Tendon Injury Anesthetic Type: Local Local Anesthesia - Lidocaine (Xylocaine): 1% Plain Local Anesthetic Volume: 3cc Skin Prep: Chlorhexidine (Hibiciens), Saline Saline Irrigation (cc's): 250 Exploration/Debridement/Repair: Wound Explored, In a Bloodless Field, Explored to Base, No Foreign Material Found Lac/Wound length In cm: 2 Suture Size: 4-0 # of Sutures: 4 Suture Type: Silk, Interrupted Drain Placement: No Sterile Dressing Applied: Nurse Tetanus Status Addressed: Yes (up to date) Complications: No Progress/Comments: There is a 2 cm irregular subcutaneous laceration that has 3 sutures with another small 1 cm more superficial laceration with 1 suture Course - Vital Signs Last Recorded V/S: Last Vital Signs Temp 97.2 F 02/16/21 14:39 Pulse 84 11/26/21 14:39 Resp 18 02/16/21 14:39 BP 135/78 02/16/21 14:39 Pulse Ox 96 02/16/21 14:39 - Orders/Labs/Meds Orders: Active Orders 24 hr Category Date Time Status Communication Order [RC] STAT Care 02/16/21 15:01 Ordered Meds: Medications Discontinued Medications Generic Name Dose Route Start Last Admin Trade Name Johnathan PRN Reason Stop Dose Admin Lidocaine HCl 5 ml 02/16/21 14:40 Lidocaine 1% 5 Ml Sdv INJECT 02/16/21 14:41 ONETIME ONE Departure - Departure Time of Disposition: 15:01 Disposition: Home, Self-Care 01 Clinical Impression: Finger laceration - Discharge Information Referrals: Rupesh Lott MD [Primary Care Provider] - Forms: ED Department Discharge Additional Instructions: The following information is given to patients seen in the emergency department who are being discharged to home. This information is to outline your options for follow-up care. We provide all patients seen in our emergency department with a follow-up referral. The need for follow-up, as well as the timing and circumstances, are variable depending upon the specifics of your emergency department visit. If you don't have a primary care physician on staff, we will provide you with a referral. We always advise you to contact your personal physician following an emergency department visit to inform them of the circumstance of the visit and for follow-up with them and/or the need for any referrals to a consulting specialist. The emergency department will also refer you to a specialist when appropriate. This referral assures that you have the opportunity for follow-up care with a specialist. All of these measure are taken in an effort to provide you with optimal care, which includes your follow-up. Under all circumstances we always encourage you to contact your private physician who remains a resource for coordinating your care. When calling for follow-up care, please make the office aware that this follow-up is from your recent emergency room visit. If for any reason you are refused follow-up, please contact the [facility] Emergency Department at and asked to speak to the emergency department charge nurse. [facility] [address] [place] [id number] [facility] [address] [place] [address] 1. Keep the area clean and dry. Continue to monitor for signs of infection as discussed. Sutures to be removed in 7-10 days. 2. Tylenol and/or ibuprofen as directed and as needed for pain management and discomfort. 3. Please follow-up with your primary care provider as discussed. Return to the ED as needed and as discussed. Sepsis Event Note (ED) - Evaluation Sepsis Screening Result: No Definite Risk - Focused Exam Vital Signs: Vital Signs Temp Pulse Resp BP Pulse Ox 02/16/21 14:39 97.2 F 84 18 135/78 96 - My Orders Last 24 Hours: My Active Orders 02/16/21 15:01 Communication Order [RC] STAT - Assessment/Plan Last 24 Hours: My Active Orders 02/16/21 15:01 Communication Order [RC] STAT
== END 2021-02-16 15:36 | disposition home or self-care (01) ==
LOC: MW.ED 13:18
DX: S61.214A Laceration without foreign body of right ring finger without damage to nail, initial encounter (principal); Z72.0 Tobacco use; W26.8XXA Contact with other sharp object(s), not elsewhere classified, initial encounter
CPT/HCPCS: 12002; 99282-25

== ENCOUNTER 2021-04-09 11:20 | Emergency (ER) | payer BC ==
[2021-04-09] MEDS ORDERED: Sodium Chloride 0.9% 1,000 ML IV ONE (11:57)
[2021-04-09] MEDS ORDERED: Sodium Chloride 0.9% 2.5 ML Syringe FLUSH PRN (11:57)
[2021-04-09] MEDS ORDERED: Sodium Chloride 0.9% 10 ML Syringe FLUSH PRN (11:57)
[2021-04-09 12:59] LABS: CORONAVIRUS COVID-19 NAA NEGATIVE (NEGATIVE); INFLUENZA A NAA NEGATIVE (NEGATIVE); INFLUENZA B NAA NEGATIVE (NEGATIVE)
[2021-04-09 13:01] LABS: BLOOD UREA NITROGEN,BUN 15 mg/dL (7.0-18.0); CARBON DIOXIDE,CO2 27.4 mmol/L (21.0-32.0); CHLORIDE,CL 105 mmol/L (98-107); GLUCOSE RANDOM 98 mg/dL (74-106); SODIUM,NA 140 mmol/L (136-148)
== END 2021-04-09 13:58 | disposition home or self-care (01) ==
LOC: MW.ED 11:20
DX: R56.9 Unspecified convulsions (principal); Z20.822 Contact with and (suspected) exposure to COVID-19
CPT/HCPCS: 0240U; 36415; 70450; 71045; 80053; 81001; 83735; 85025; 99285; J7030

== ENCOUNTER 2023-03-12 17:13 | Emergency (ER) | payer BC | END 2023-03-12 19:01 | disposition home or self-care (01) | LOC: MW.ED 17:13 | DX: R22.41 Localized swelling, mass and lump, right lower limb (principal); Z79.899 Other long term (current) drug therapy; Z90.49 Acquired absence of other specified parts of digestive tract | CPT/HCPCS: 93971-26-RT; 93971-RT; 99283 ==

== ENCOUNTER 2023-10-23 13:27 | Emergency (ER) | payer BC, OTHER ==
[2023-10-23] MEDS: Diphtheria,Pertussis(Acell),Tetanus Vaccine 0.5 ML Syringe IM ONE (13:49)
[2023-10-23] MEDS: Lidocaine 1% 5 ML VIAL INJECT ONE ×2 (14:26→14:28)
[2023-10-23] MEDS: Lidocaine 1% 5 ML VIAL ONE (14:27)
== END 2023-10-23 14:43 | disposition home or self-care (01) ==
LOC: MW.ED 13:27
DX: S61.412A Laceration without foreign body of left hand, initial encounter (principal); Z23 Encounter for immunization; Z79.899 Other long term (current) drug therapy; Z86.16 Personal history of COVID-19; Z90.49 Acquired absence of other specified parts of digestive tract; W23.0XXA Caught, crushed, jammed, or pinched between moving objects, initial encounter
CPT/HCPCS: 12001; 12002; 73130-26-LT; 73130-LT; 90471; 90715; 99283; 99283-25; J3490